=== PATIENT | female | born 1965 | race Caucasian/White ===

== ENCOUNTER 2022-06-24 13:13 | Emergency (ER) | payer OTHER ==
[2022-06-24] MEDS ORDERED: ACETAMINOPHEN 325 MG TABLET ONE (14:14)
[2022-06-24] MEDS ORDERED: ONDANSETRON 4 MG (ODT) TAB ONE (14:14)
[2022-06-24 15:17] LABS: SARS-COV-2 RT PCR NEGATIVE (NEGATIVE)
--- NOTE | 2022-06-24 16:08 | EDPHYS ---
Physician Documentation [facility] Name: Priya Bautista Age: 56 yrs Sex: Female : 1965 Arrival Date: 06/24/2022 Time: 13:17 Bed 3 Private MD: ED Physician Stanton Ventura HPI: 06/24 14:10 This 56 yrs old Female presents to ER via Ambulatory with complaints of Vomiting, cp Headache, Cough. 14:10 The patient presents to the emergency department with nausea, that is mild, vomiting, cp that is intermittent, diarrhea, that is intermittent. Onset: The symptoms/episode began/occurred 4 day(s) ago. Possible causes: sick contacts, by family. Associated signs and symptoms: Pertinent positives: headache, body aches, cough, Pertinent negatives: abdominal pain, fever. Severity of symptoms: in the emergency department the symptoms are unchanged despite home interventions. Historical: - Allergies: 14:04 No Known Allergies; kb3 - Home Meds: 14:04 losartan 100 mg Oral tab 1 tab once daily [Active]; kb3 - PMHx: 14:04 Hypertensive disorder; kb3 - PSHx: 14:04 None; kb3 - Immunization history:: Adult Immunizations up to date, Client reports having NOT received the Covid vaccine. - Social history:: Smoking status: Patient denies any tobacco usage or history of. ROS: 14:15 Constitutional: Positive for body aches, Negative for fever, poor PO intake. cp 14:15 Eyes: Negative for injury, pain, redness, and discharge. cp 14:15 ENT: Positive for sore throat, Negative for drainage from ear(s), ear pain, difficulty swallowing, difficulty handling secretions. 14:15 Cardiovascular: Negative for chest pain. 14:15 Respiratory: Positive for cough, Negative for shortness of breath, wheezing. 14:15 Abdomen/GI: Positive for nausea and vomiting, diarrhea, Negative for abdominal pain, constipation. 14:15 Neuro: Positive for headache, Negative for altered mental status. 14:15 All other systems are negative. Exam: 14:20 Constitutional: The patient appears in no acute distress, alert, awake, cp non-diaphoretic, non-toxic, well developed, well nourished. 14:20 Head/Face: Normocephalic, atraumatic. cp 14:20 Eyes: Periorbital structures: appear normal, Conjunctiva: normal, no exudate, no injection, Sclera: no appreciated abnormality, Lids and lashes: appear normal, bilaterally. 14:20 ENT: External ear(s): are unremarkable, Ear canal(s): are normal, clear, TM's: dullness, bilaterally, Nose: is normal, Mouth: Lips: moist, Oral mucosa: pink and intact, moist, Posterior pharynx: Airway: no evidence of obstruction, patent, Tonsils: no enlargement, no erythema, no exudate, erythema, that is mild, exudate, is not appreciated. 14:20 Neck: ROM/movement: is normal, is supple, without pain, no range of motions limitations, no meningismus. 14:20 Chest/axilla: Inspection: normal. 14:20 Cardiovascular: Rate: tachycardic, Rhythm: regular, Edema: is not appreciated, JVD: is not appreciated. 14:20 Respiratory: the patient does not display signs of respiratory distress, Respirations: normal, no use of accessory muscles, no retractions, labored breathing, is not present, Breath sounds: decreased breath sounds, are not appreciated, stridor, is not appreciated, + upper airway congestion. wheezing: is not appreciated. 14:20 Abdomen/GI: Inspection: abdomen appears normal, Palpation: abdomen is soft and non-tender, in all quadrants. Vital Signs: 14:00 BP 145 / 94; Pulse 106; Resp 20; Temp 98.1; Pulse Ox 99% ; Weight 61.23 kg; Height 5 kb3 ft. 2 in. (157.48 cm); Pain 8/10; 14:10 BP 138 / 90; Pulse 101; Pulse Ox 99% on R/A; ko1 14:00 Body Mass Index 24.69 (61.23 kg, 157.48 cm) kb3 MDM: 14:06 Patient medically screened. cp 14:30 Differential diagnosis: gastritis, viral gastroenteritis, gastroenteritis, COVID-19, cp influenza, strep throat. 16:06 Data reviewed: vital signs, nurses notes, lab test result(s). cp 16:06 Counseling: I had a detailed discussion with the patient and/or guardian regarding: the cp historical points, exam findings, and any diagnostic results supporting the discharge/admit diagnosis, lab results, to return to the emergency department if symptoms worsen or persist or if there are any questions or concerns that arise at home. Response to treatment: the patient's symptoms have mildly improved after treatment, VSS. Patient appears non-toxic and no signs of respiratory distress. Will discharge to home for continued monitoring. 06/24 14:05 Order name: COVID-19/FLU A+B/RSV; Complete Time: 15:38 cp 06/24 15:38 Interpretation: INFLUENZA A POSITIVE; Reviewed. cp 06/24 14:05 Order name: Strep; Complete Time: 15:38 cp 06/24 15:31 Order name: Throat Culture EDMS 06/24 15:59 Order name: PO challenge; Complete Time: 16:02 cp Administered Medications: 14:14 Drug: Zofran (Ondansetron) 4 mg Route: PO; ko1 14:14 Drug: Tylenol 650 mg Route: PO; ko1 Disposition Summary: 06/24/22 16:07 Discharge Ordered Location: Home cp Problem: new cp Symptoms: have improved cp Condition: Stable cp Diagnosis - Influenza due to identified novel influenza A virus with other manifestations cp Followup: cp - With: Private Physician - When: 2 - 3 days - Reason: Worsening of condition Discharge Instructions: - Discharge Summary Sheet cp - Influenza, Adult cp Forms: - Medication Reconciliation Form cp - Thank You Letter cp - Antibiotic Education cp - Prescription Opioid Use cp Prescriptions: - Zofran 4 mg Oral Tablet - take 1 tablet by ORAL route every 12 hours As needed; 20 tablet; Refills: 0, cp Product Selection Permitted Signatures: Dispatcher [employer] EDNJ Irving Ortiz PA PA cp Aline Hewitt RN RN kb3 Suzy Farrell RN RN ko1 Corrections: (The following items were deleted from the chart) 15:38 15:38 Reviewed. cp cp
--- NOTE | 2022-06-24 16:08 | ER ---
Nurse's Notes [facility] Name: Priya Bautista Age: 56 yrs Sex: Female : 1965 Arrival Date: 06/24/2022 Time: 13:17 Bed 3 Private MD: Diagnosis: Influenza due to identified novel influenza A virus with other manifestations Presentation: 06/24 14:00 Chief complaint: Patient states: headache, fatigue, cough, congestion x3 days. kb3 Coronavirus screen: Vaccine status: Patient reports being unvaccinated. Client denies travel out of the [place] in the last 14 days. Ebola Screen: Patient negative for fever greater than or equal to 101.5 degrees Fahrenheit, and additional compatible Ebola Virus Disease symptoms Patient denies exposure to infectious person. Patient denies travel to an Ebola-affected area in the 21 days before illness onset. Initial Sepsis Screen: Does the patient meet any 2 criteria? No. Patient's initial sepsis screen is negative. Does the patient have a suspected source of infection? No. Patient's initial sepsis screen is negative. Risk Assessment: Do you want to hurt yourself or someone else? Patient reports no desire to harm self or others. Onset of symptoms was June 21, 2022. 14:00 Method Of Arrival: Ambulatory kb3 14:00 Acuity: BYRON 4 kb3 Triage Assessment: 14:04 General: Appears in no apparent distress. Behavior is calm, cooperative. Pain: kb3 Complains of pain in head Pain does not radiate. Pain currently is 8 out of 10 on a pain scale. Quality of pain is described as aching. GI: Reports diarrhea, nausea, vomiting. Historical: - Allergies: 14:04 No Known Allergies; kb3 - Home Meds: 14:04 losartan 100 mg Oral tab 1 tab once daily [Active]; kb3 - PMHx: 14:04 Hypertensive disorder; kb3 - PSHx: 14:04 None; kb3 - Immunization history:: Adult Immunizations up to date, Client reports having NOT received the Covid vaccine. - Social history:: Smoking status: Patient denies any tobacco usage or history of. Screenin:[facility] ED Fall Risk Assessment (Adult) History of falling in the last 3 months, ko1 including since admission No falls in past 3 months (0 pts) Confusion or Disorientation No (0 pts) Intoxicated or Sedated No (0 pts) Impaired Gait No (0 pts) Mobility Assist Device Used No (0 pt) Altered Elimination No (0 pt) Score/Fall Risk Level 0 - 2 = Low Risk. Abuse screen: Denies threats or abuse. Denies injuries from another. Nutritional screening: No deficits noted. Tuberculosis screening: No symptoms or risk factors identified. Fall Risk No fall in past 12 months (0 pts). Assessment: 14:10 General: Appears in no apparent distress. ill, Behavior is calm, cooperative, ko1 appropriate for age. Pain: Denies pain. Neuro: No deficits noted. Cardiovascular: Reports. Respiratory: Reports cough that is non-productive, persistent. GI: Abdomen is non-distended, Reports nausea, vomiting. : No deficits noted. EENT: No deficits noted. Derm: No deficits noted. Musculoskeletal: No deficits noted. Vital Signs: 14:00 BP 145 / 94; Pulse 106; Resp 20; Temp 98.1; Pulse Ox 99% ; Weight 61.23 kg; Height 5 kb3 ft. 2 in. (157.48 cm); Pain 8/10; 14:10 BP 138 / 90; Pulse 101; Pulse Ox 99% on R/A; ko1 14:00 Body Mass Index 24.69 (61.23 kg, 157.48 cm) kb3 ED Course: 13:17 Patient arrived in ED. mr 13:19 Irving Ortiz PA is PHCP. cp 13:19 Stanton Ventura MD is Attending Physician. cp 14:02 Triage completed. kb3 14:04 Arm band placed on right wrist. kb3 14:08 Suzy Farrell, SOLIS is Primary Nurse. ko1 14:10 Patient has correct armband on for positive identification. Bed in low position. Call ko1 light in reach. Side rails up X 1. Client placed on continuous cardiac and pulse oximetry monitoring. NIBP monitoring applied. 14:10 No provider procedures requiring assistance completed. Patient did not have IV access ko1 during this emergency room visit. 14:14 COVID-19/FLU A+B/RSV Sent. ko1 14:14 Strep Sent. ko1 Administered Medications: 14:14 Drug: Zofran (Ondansetron) 4 mg Route: PO; ko1 14:14 Drug: Tylenol 650 mg Route: PO; ko1 Medication: 14:10 VIS not applicable for this client. ko1 Outcome: 16:07 Discharge ordered by . cp 16:19 Discharged to home ambulatory, with family. ko1 16:19 Condition: stable 16:19 Discharge instructions given to patient, family, Instructed on discharge instructions, follow up and referral plans. medication usage, Demonstrated understanding of instructions, follow-up care, medications, Prescriptions given X 1. 16:19 Patient left the ED. ko1 Signatures: Beth Curry mr Irving Ortiz PA PA cp Bradberry, Kelly, RN RN kb3 Suzy Farrell, SOLIS RN ko1
[2022-06-24 16:38] VITALS: TEMP 98.1; O2SAT 99
[2022-06-24 16:39] VITALS: BP 138/90
== END 2022-06-24 16:19 | disposition home or self-care (01) ==
LOC: ER 13:13
DX: J10.1 Influenza due to other identified influenza virus with other respiratory manifestations (principal); Z20.822 Contact with and (suspected) exposure to COVID-19; I10 Essential (primary) hypertension
CPT/HCPCS: 87070; 87081; 0241U; 99283; Q0162

== ENCOUNTER 2024-07-09 00:05 | Emergency (ER) | payer OTHER ==
[2024-07-09 01:02] LABS: Sqamous Epithelial <5 /HPF (None Seen); Urine Bacteria None Seen /HPF (<20); Urine Bilirubin NEGATIVE (Negative); Urine Blood Negative (Negative); Urine Clarity Clear (Clear); Urine Color Light-Yellow (Yellow); Urine Culture Reflex Order NOT NEEDED; Urine Glucose NEGATIVE (Negative); Urine Ketones TRACE (Negative); Urine Microscopic Reflex YN ORDER UMIC; Urine Nitrite NEGATIVE (Negative); Urine Protein NEGATIVE (Negative); Urine RBC None Seen /HPF (None Seen); Urine Urobilinogen Normal (Normal); Urine WBC <5 /HPF (<5); Urine pH 5.5 (5.0-7.0)
[2024-07-09 01:03] LABS: Absolute Basophils 0.1 K/uL (0-0.5); Absolute Eosinophils 0.1 K/uL (0-0.5); Absolute Lymphocytes (CBC) 2.1 K/uL (0.7-4.9); Absolute Monocytes 0.5 K/uL (0.1-1.3); Absolute Neutrophil 2.6 K/uL (1.8-8.0); Basophils % 0.9 % (0-1.3); Eosinophils % 2.5 % (0-4.4); Hemoglobin 13.3 g/dL (12.0-15.0); Lymphocytes % 39.9 % (15.3-44.8); MCH 29.5 pg (27.0-35.0); MCV 86.6 fL (80-100); MPV 9.1 fL (7.6-11.3); Monocytes % 8.5 % (3.3-12.3); Neutrophils % 48.2 % (41.7-73.7); Platelets 213 thou/uL (152-406); Red Cell Distribution Width 13.1 % (12.1-15.2)
[2024-07-09 01:17] LABS: Albumin 3.9 g/dL (3.4-5.0); Albumin/Globulin Ratio 1.2 (1.1-1.8); Anion Gap 10.4 mEq/L (5.0-15.0); Bilirubin Total 0.7 mg/dL (0.2-1.0); Globulin 3.2 g/dL (2.3-3.5); Potassium 3.4 mEq/L (3.5-5.1); Protein, Total 7.1 g/dL (6.4-8.2); Troponin High Sensitivity 4.2 pg/mL (<58.9)
--- NOTE | 2024-07-09 01:44 | EDPHYS ---
Physician Documentation [facility] Name: Priya Bautista Age: 58 yrs Sex: Female : 1965 Arrival Date: 07/09/2024 Time: 00:05 Bed 7 Private MD: Irving Miles HPI: 07/09 00:46 This 58 yrs old Female presents to ER via Ambulatory with complaints of dr5 Cough, Chest Wall Pain, Urinary Incontinence. 00:46 The patient or guardian reports cough, that is intermittent. Onset: The dr5 symptoms/episode began/occurred 3 month(s) ago. Patient is a 58-year-old female with history of hypertension coming in for right upper quadrant abdominal pain that started while laying in bed that lasted 20 minutes and then resolved. Patient also reports that she has had a nonproductive cough for the past 2 months. Patient reports that she has had a cough like this intermittent for the past 2 years. Patient also reports urinary incontinence that is been intermittent for the past 2 years. Patient reports the urinary incontinence has gotten worse, but denies trauma, perirectal numbness, bowel incontinence, numbness or tingling to bilateral legs, fever. . Historical: - Allergies: 00:22 No Known Allergies; vc1 - Home Meds: 00:22 losartan 100 mg Oral tab 1 tab once daily [Active]; vc1 - PMHx: 00:22 Hypertensive disorder; vc1 - PSHx: 00:22 section; vc1 - Immunization history:: Client reports having NOT received the Covid vaccine. - Infectious Disease History:: Denies. - Social history:: Smoking status: Patient denies any tobacco usage or history of. ROS: 00:46 Constitutional: as per hpi dr5 Exam: 00:46 Constitutional: This is a well developed, well nourished patient who is awake, alert, dr5 and in no acute distress. Head/Face: Normocephalic, atraumatic. Eyes: Pupils equal round and reactive to light, extra-ocular motions intact. Lids and lashes normal. Conjunctiva and sclera are non-icteric and not injected. Cornea within normal limits. Periorbital areas with no swelling, redness, or edema. Neck: Trachea midline, no thyromegaly or masses palpated, and no cervical lymphadenopathy. Supple, full range of motion without nuchal rigidity, or vertebral point tenderness. No Meningismus. Chest/axilla: Normal chest wall appearance and motion. Nontender with no deformity. No lesions are appreciated. Cardiovascular: Regular rate and rhythm with a normal S1 and S2. Normal PMI, no JVD. No pulse deficits. Respiratory: Lungs have equal breath sounds bilaterally, clear to auscultation. No rales, rhonchi or wheezes noted. No increased work of breathing, no retractions or nasal flaring. Back: No spinal tenderness. No costovertebral tenderness. Full range of motion. Skin: Warm, dry with normal turgor. Normal color with no rashes, no lesions, and no evidence of cellulitis. Neuro: Awake and alert, GCS 15, oriented to person, place, time, and situation. Cranial nerves II-XII grossly intact. Motor strength 5/5 in all extremities. Sensory grossly intact. Cerebellar exam normal. Normal gait. Vital Signs: 00:20 BP 151 / 101; Pulse 87; Resp 15; Temp 97.7; Pulse Ox 98% ; Weight 63.96 kg; Height 5 vc1 ft. 2 in. ; Pain 5/10; 01:05 BP 153 / 92; Pulse 88; Resp 20; Pulse Ox 99% on R/A; ay 00:20 Body Mass Index 25.79 (63.96 kg, 157.48 cm) vc1 00:20 Pain Scale: Adult vc1 [place] Coma Score: 00:20 Eye Response: spontaneous(4). Motor Response: obeys commands(6). Verbal Response: ay oriented(5). Total: 15. MDM: 00:16 Medical Screening Exam initiated dr5 01:49 Differential Diagnosis: Obstructed Airway Bronchitis Upper Respiratory Infection Other dr5 GERD, UTI. Data reviewed: vital signs, nurses notes. Historians other than the Patient: Spouse/Significant Other: . Care significantly affected by the following chronic conditions: Hypertension. Care significantly affected by the following Social Determinants of Health: Poor access to healthcare and/or lack of insurance, Poor access to transportation, Problems related to employment. Counseling: I had a detailed discussion with the patient and/or guardian regarding the historical points, exam findings, and any diagnostic results supporting the discharge/admit diagnosis, the presence of at least one elevated blood pressure reading (>120/80) during this emergency department visit, the need for outpatient follow up, for definitive care, a family practitioner, a urologist, to return to the emergency department if symptoms worsen or persist or if there are any questions or concerns that arise at home. ED course: Patient's blood work discussed with her. All labs were unremarkable. Will trial patient on omeprazole, and give cough medication and short course of steroids for URI. Recommended patient establish care with a PCP and follow-up with urology for continued management. No symptoms on discharge. Patient is feeling much better all questions answered.. 07/09 00:30 Order name: CBC with Diff; Complete Time: dr5 07/09 00:30 Order name: Troponin HS; Complete Time: dr5 07/09 00:30 Order name: CMP; Complete Time: dr5 07/09 00:30 Order name: Lipase; Complete Time: dr5 07/09 00:30 Order name: Urinalysis w/ reflexes; Complete Time: dr5 07/09 00:30 Order name: Chest Pa And Lat (2 Views) XRAY dr5 07/09 00:30 Order name: EKG; Complete Time: 00: dr5 07/09 00:30 Order name: Cardiac monitoring; Complete Time: 00: dr5 07/09 00:30 Order name: EKG - Nurse/Tech; Complete Time: : [facility] 07/09 00:30 Order name: IV Saline Lock; Complete Time: : [facility] 07/09 00:30 Order name: Labs collected and sent; Complete Time: 00:50 dr5 07/09 00:30 Order name: O2 Per Protocol; Complete Time: 00: [facility] 07/09 00:30 Order name: O2 Sat Monitoring; Complete Time: : dr5 EC:59 Rate is 89 beats/min. Rhythm is regular. QRS [place] is Normal. [place] interval is normal at dr5 124 msec. QRS interval is normal at 80 msec. QT interval is normal at 356 msec. Administered Medications: No medications were administered Disposition Summary: 07/09/24 01:43 Discharge Ordered Notes: Location: Home dr5 Condition: Stable dr5 Diagnosis - Costochondritis dr5 - Gastro-esophageal reflux disease without esophagitis dr5 Followup: dr5 - With: Emergency Department - When: As needed - Reason: Worsening of condition Followup: dr5 - With: Private Physician - When: 1 - 2 days - Reason: Recheck today's complaints, Continuance of care, Re-evaluation by your physician Discharge Instructions: - Discharge Summary Sheet dr5 - Gastroesophageal Reflux Disease, Adult dr5 - Upper Respiratory Infection, Adult dr5 Forms: - Medication Reconciliation Form dr5 - Patient Portal Instructions dr5 - Leadership Thank You Letter dr5 Prescriptions: - Bromfed DM 2-30-10 mg/5 mL Oral syrup - administer 10 milliliter ORAL route 3 times per day As needed as needed for dr5 allergy symptoms; 240 milliliter; Refills: 0, Product Selection Permitted - omeprazole 10 mg Oral capsule,delayed release (e.c.) - dissolve 1 capsule ORAL route daily for 30 days; 30 capsule; Refills: 0, dr5 Product Selection Permitted - Medrol ([place]) 4 mg Oral Tablets, Dose Pack - take 1 tablet ORAL route as directed - follow package instructions; 1 packet; dr5 Refills: 0, Product Selection Permitted Addendum: 07/10/2024 06:44 Co-signature as Attending Physician, Irving Mane MD I agree with the assessment and c allen plan of care. Signatures: Dispatcher [employer] EDSD Irving Mane MD MD cha Calcote, Vanessa, RN RN vc1 Melchor Del Cid, STAMP PAD MAKER-C STAMP PAD MAKER-Cdr5 Corrections: (The following items were deleted from the chart) 07/09 00:30 00:30 CBC+H.LAB.BRZ ordered. EDMS EDMS 00:30 00:30 Troponin High Sensitivity+C.LAB.BRZ ordered. EDMS EDMS 00:30 00:30 COMPREHENSIVE METABOLIC PANEL+C.LAB.BRZ ordered. EDMS EDMS 00:30 00:30 LIPASE+C.LAB.BRZ ordered. EDMS EDMS 00:30 00:30 Urinalysis+U.LAB.BRZ ordered. EDMS EDMS
--- NOTE | 2024-07-09 01:44 | ER ---
Nurse's Notes [facility] Name: Priya Bautista Age: 58 yrs Sex: Female : 1965 Arrival Date: 07/09/2024 Time: 00:05 Bed 7 Private MD: Diagnosis: Costochondritis;Gastro-esophageal reflux disease without esophagitis Presentation: 07/09 00:20 Chief complaint: Patient states: bad cough for a month, leaking pee where I now have to vc1 wear depends and tonight I had chest pain. Coronavirus screen: Client denies travel out of the [place] in the last 14 days. At this time, the client does not indicate any symptoms associated with coronavirus-19. Ebola Screen: Patient negative for fever greater than or equal to 101.5 degrees Fahrenheit, and additional compatible Ebola Virus Disease symptoms Patient denies exposure to infectious person. Patient denies travel to an Ebola-affected area in the 21 days before illness onset. No symptoms or risks identified at this time. Initial Sepsis Screen: Does the patient meet any 2 criteria? No. Patient's initial sepsis screen is negative. Does the patient have a suspected source of infection? No. Patient's initial sepsis screen is negative. Risk Assessment: Do you want to hurt yourself or someone else?. Onset of symptoms was July 09, 2024. 00:20 Method Of Arrival: Ambulatory vc1 00:20 Acuity: BYRON 4 vc1 Triage Assessment: 00:22 General: Appears in no apparent distress. uncomfortable, Behavior is calm, cooperative, vc1 appropriate for age. Pain: Complains of pain in right breast Pain does not radiate. Pain currently is 5 out of 10 on a pain scale. at worst was 10 out of 10 on a pain scale. EENT: No deficits noted. No signs and/or symptoms were reported regarding the EENT system. Neuro: Level of Consciousness is awake, alert, obeys commands, Oriented to person, place, time, situation, Appropriate for age. Cardiovascular: Reports chest pain, Capillary refill < 3 seconds Patient's skin is warm and dry. Respiratory: Reports cough that is non-productive, persistent since a month Airway is patent Respiratory effort is even, unlabored, Respiratory pattern is regular, symmetrical. GI: No deficits noted. No signs and/or symptoms were reported involving the gastrointestinal system. : Reports bedwetting, incontinence, urgency, urinary frequency. Derm: Skin is intact, is fragile, Skin is dry, Skin is normal, Skin temperature is warm. Musculoskeletal: Circulation, motion, and sensation intact. Range of motion: intact in all extremities. Historical: - Allergies: 00:22 No Known Allergies; vc1 - Home Meds: 00:22 losartan 100 mg Oral tab 1 tab once daily [Active]; vc1 - PMHx: 00:22 Hypertensive disorder; vc1 - PSHx: 00:22 section; vc1 - Immunization history:: Client reports having NOT received the Covid vaccine. - Infectious Disease History:: Denies. - Social history:: Smoking status: Patient denies any tobacco usage or history of. Screenin:20 [facility] ED Fall Risk Assessment (Adult) History of falling in the last 3 months, vc1 including since admission No falls in past 3 months (0 pts) Confusion or Disorientation No (0 pts) Intoxicated or Sedated No (0 pts) Impaired Gait No (0 pts) Mobility Assist Device Used No (0 pt) Altered Elimination Yes (1 pt) Score/Fall Risk Level 0 - 2 = Low Risk Oriented to surroundings, Maintained a safe environment, Educated pt \T\ family on fall prevention, incl call for assistance when getting out of bed. Abuse screen: Denies threats or abuse. Nutritional screening: No deficits noted. Tuberculosis screening: No symptoms or risk factors identified. Assessment: 00:20 General: Appears in no apparent distress. comfortable, Behavior is calm, cooperative. ay 00:20 Pain: Complains of pain in chest, under right breast Pain does not radiate. Pain began ay 3 hours ago. Neuro: Level of Consciousness is awake, alert, obeys commands, Oriented to person, place, time, situation, Speech is normal. Cardiovascular: Capillary refill < 3 seconds Rhythm is regular. Respiratory: Airway is patent Respiratory effort is even, unlabored, Respiratory pattern is regular, symmetrical. GI: Abdomen is flat, Bowel sounds present X 4 quads. : Reports incontinence, since 05/2024. EENT: No signs and/or symptoms were reported regarding the EENT system. Derm: No signs and/or symptoms reported regarding the dermatologic system. Musculoskeletal: No signs and/or symptoms reported regarding the musculoskeletal system. Vital Signs: 00:20 BP 151 / 101; Pulse 87; Resp 15; Temp 97.7; Pulse Ox 98% ; Weight 63.96 kg; Height 5 vc1 ft. 2 in. ; Pain 5/10; 01:05 BP 153 / 92; Pulse 88; Resp 20; Pulse Ox 99% on R/A; ay 00:20 Body Mass Index 25.79 (63.96 kg, 157.48 cm) vc1 00:20 Pain Scale: Adult vc1 [place] Coma Score: 00:20 Eye Response: spontaneous(4). Motor Response: obeys commands(6). Verbal Response: ay oriented(5). Total: 15. ED Course: 00:08 Patient arrived in ED. jj6 00:16 Melchor Del Cid FNP-C is PHCP. dr5 00:16 Irving Mane MD is Attending Physician. dr5 00:20 Provided Education on: plan of care. ay 00:20 Inserted saline lock: 20 gauge in right antecubital area, using aseptic technique. ay Patient maintains SpO2 saturation greater than 95% on room air. 00:22 Triage completed. vc1 00:22 Arm band placed on right wrist. vc1 00:23 Jose Roberto Mccormick, RN is Primary Nurse. ay 00:25 Patient has correct armband on for positive identification. Bed in low position. Pulse vc1 ox on. NIBP on. 00:50 Urinalysis w/ reflexes Sent. ay 00:50 Lipase Sent. ay 00:50 CMP Sent. ay 00:52 CBC with Diff Sent. ay 00:52 Troponin HS Sent. ay 01:05 No provider procedures requiring assistance completed. IV discontinued, intact, ay bleeding controlled, No redness/swelling at site. Pressure dressing applied. 01:16 Chest Pa And Lat (2 Views) XRAY In Process Unspecified. EDMS Administered Medications: No medications were administered Medication: 00:20 VIS not applicable for this client. ay Outcome: 01:05 Discharged to home ambulatory, ay 01:05 Condition: stable 01:05 Discharge instructions given to patient, Instructed on discharge instructions, follow up and referral plans. Demonstrated understanding of instructions, follow-up care, medications, Prescriptions given X 3, 01:43 Discharge ordered by . dr5 01:58 Patient left the ED. ay Signatures: Dispatcher [employer] EDMS Jeannie Henderson jj6 Lori Bazzi, RN RN vc1 Melchor Del Cid, ROLL WINDER-C ROLL WINDER-Cdr5 Jose Roberto Mccormick, RN RN ay
--- NOTE | 2024-07-09 08:20 | RAD REPORT ---
EXAMINATION: Chest Pa And Lat (2 Views) CLINICAL HISTORY: CHEST PAIN COMPARISON: None FINDINGS: The lungs are clear. There is no pleural effusion or pneumothorax. The cardiomediastinal silhouette i s without acute process. The osseous structures are without acute process. IMPRESSION: No acute process. RECOMMENDATIONS: Electronically signed by: Gregory Bowers MD 07/09/2024 08:07 AM [facility] Due to temporary technical issues with the PACS/[employer] reporting system, reports are being neri d by the in-house radiologist without review as a courtesy to ensure prompt reporting the interpreting radiologist is fully responsible for the content of the report. Transcribed Date/Time: 07/09/2024 8:20 AM
[2024-07-09 09:48] VITALS: TEMP 97.7
[2024-07-09 09:50] VITALS: BP 153/92; O2SAT 99
--- NOTE | 2024-07-12 12:51 | EKG ---
Test Date: 2024-07-09 Test Time: 00:59:59 Crane Rigger: JAIME MEASUREMENT RESULTS: Intervals: Rate: 89 WI: 124 QRSD: 80 QT: 356 QTc: 433 Bland: P: 12 WI: 124 QRS: 31 T: 35 INTERPRETIVE STATEMENTS: Normal sinus rhythm Normal ECG Compared to ECG 01/13/2011 22:11:02 Short WI interval no longer present ST (T wave) deviation no longer present Electronically Signed On 07-12-24 12:48:53 MANAGER [employer] by Jamarcus Michel
== END 2024-07-09 01:58 | disposition home or self-care (01) ==
LOC: ER 00:05
DX: M94.0 Chondrocostal junction syndrome [Tietze] (principal); K21.9 Gastro-esophageal reflux disease without esophagitis; R05.9 Cough, unspecified; I10 Essential (primary) hypertension
CPT/HCPCS: 36415; 71046; 80053; 81001; 83690; 84484; 85025; 93005; 99284